=== PATIENT | female | born 1970 | race Caucasian/White ===

== ENCOUNTER 2024-07-15 21:55 | Outpatient (OUT) | payer OTHER, SELFPAY | END 2024-07-15 21:56 | disposition home or self-care (01) | PROVIDERS: PCP Family Medicine; Visit Provider Preventive Medicine Preventive Medicine/Occupational Environmental Medicine | DX: M25.571 Pain in right ankle and joints of right foot (principal); M77.31 Calcaneal spur, right foot | CPT/HCPCS: 73610 ==